=== PATIENT | female | born 1980 | race American Indian/Alaskan Native ===

== ENCOUNTER 2016-10-17 13:21 | Emergency (ER) | payer SELFPAY ==
[2016-10-17 13:27] VITALS: BMI 31.9
[2016-10-17 13:34] VITALS: BP 112/76; PULSE 58; RESP 18; TEMP 98.1; O2SAT 99
--- NOTE | 2016-10-17 13:37 | ED PDOC ---
Arrival/HPI - General Chief Complaint: Abdominal Pain Time Seen by Provider: 10/17/16 13:36 Historian: Patient - History of Present Illness Narrative History of Present Illness (Text): 10/17/16 13:37 36 y/o female, no pmh, nkda, c/o foul vaginal discharge x 2 days. Pt. stated that she had unprotected sex with a new partner that she met 2-3 months ago, didn't use the condom about 1 week ago, been having foul strong odor smell as "fishy" smell for the past 2 days, no pelvic pain, no urinary frequency/urgency or burning sensation, no abdominal pain, no nausea or vomiting, concerning about gonorrhea and chlamydia as well. Past Medical History - Provider Review Nursing Documentation Reviewed: Yes - Infectious Disease Hx of Infectious Diseases: None - Psychiatric Hx Substance Use: No Family/Social History - Physician Review Nursing Documentation Reviewed: Yes Family/Social History: Unknown Family HX Smoking Status: Never Smoked Hx Alcohol Use: No Hx Substance Use: No Allergies/Home Meds Allergies/Adverse Reactions: Allergies No Known Allergies Allergy (Verified 10/17/16 13:27) Review of Systems - Review of Systems Constitutional: absent: Fatigue, Fevers Eyes: absent: Vision Changes ENT: absent: Hearing Changes Respiratory: absent: SOB, Cough Gastrointestinal: absent: Abdominal Pain, Diarrhea ( ), Nausea, Vomiting Genitourinary Female: Vaginal Discharge. absent: Dysuria, Frequency, Hematuria , Urine Output Changes, Vaginal Bleeding Skin: absent: Rash, Pruritis Neurological: absent: Headache, Dizziness, Focal Weakness Psychiatric: absent: Anxiety, Depression, Suicidal Ideation Physical Exam Vital Signs Reviewed: Yes Vital Signs Temp Pulse Resp BP Pulse Ox 10/17/16 13:21 98.1 F 58 L 18 112/76 99 Temperature: Afebrile Blood Pressure: Normal Pulse: Bradycardic Respiratory Rate: Normal Appearance: Positive for: Well-Appearing, Non-Toxic, Comfortable Pain Distress: None Mental Status: Positive for: Alert and Oriented X 3 - Systems Exam Head: Present: Atraumatic, Normocephalic Pupils: Present: PERRL Extroacular Muscles: Present: EOMI Conjunctiva: Present: Normal Mouth: Present: Moist Mucous Membranes Neck: Present: Normal Range of Motion Respiratory/Chest: Present: Clear to Auscultation, Good Air Exchange. No: Respiratory Distress, Accessory Muscle Use Cardiovascular: Present: Regular Rate and Rhythm, Normal S1, S2. No: Murmurs Abdomen: Present: Normal Bowel Sounds. 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 No: Vaginal Discharge, Vaginal Bleeding, Vaginal Lesions, Adenexal Tenderness, Adenexal Mass, Cervical Motion Tendernes Back: Present: Normal Inspection Upper Extremity: Present: Normal Inspection. No: Cyanosis, Edema Lower Extremity: Present: Normal Inspection. No: Edema Neurological: Present: GCS=15, CN II-XII Intact, Speech Normal Skin: Present: Warm, Dry, Normal Color. No: Rashes Psychiatric: Present: Alert, Oriented x 3, Normal Insight, Normal Concentration Medical Decision Making ED Course and Treatment: 10/17/16 13:37 -gc/chlamydia -UA -Rocephin/azithromycin/flagyl ordered -Pt. refused HIV and urinalysis test as she is asymptomatic, I did offered both test. -Discharge home with education on use condom in the future, no sexual activity for 1 week, avoid drinking alcohol for 24 hours, notify all your sexual partners for prophylatic treatment, return to the ER for any new or worsening signs or symptoms. 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 Disposition/Present on Arrival - Present on Arrival Any Indicators Present on Arrival: No History of DVT/PE: No History of Uncontrolled Diabetes: No Urinary Catheter: No History of Decub. Ulcer: No History Surgical Site Infection Following: None - Disposition Have Diagnosis and Disposition been Completed?: Yes Diagnosis: Vaginal discharge, Exposure to STD Disposition: HOME/ ROUTINE Disposition Time: 14:06 Patient Plan: Discharge Condition: GOOD Additional Instructions: Discharge home with education on use condom in the future, no sexual activity for 1 week, avoid drinking alcohol for 24 hours, notify all your sexual partners for prophylatic treatment, return to the ER for any new or worsening signs or symptoms. Referrals: [facility] at [facility] [place] [Outside] - Follow up with primary Delroy Levi DO [Staff Provider] - Follow up with primary Forms: WORK NOTE
[2016-10-17] MEDS ORDERED: cefTRIAXone (Rocephin) 250 mg Inj IM STA (13:49)
[2016-10-17] MEDS ORDERED: Lidocaine 1% Inj (20ml) ONE (14:27)
== END 2016-10-17 15:00 | disposition home or self-care (01) ==
LOC: ED 13:21
DX: Z20.2 Contact with and (suspected) exposure to infections with a predominantly sexual mode of transmission (principal); N89.8 Other specified noninflammatory disorders of vagina
CPT/HCPCS: 96372; 99283; J0696